=== PATIENT | male | born 1985 | race Caucasian/White ===

== ENCOUNTER 2020-02-05 13:46 | Emergency (ER) | payer OTHER, SELFPAY ==
[2020-02-05 13:56] VITALS: BP 145/96; PULSE 103; RESP 18; TEMP 36.8; O2SAT 96; BMI 28.7
[2020-02-05 14:00] VITALS: BP 143/107; PULSE 89; RESP 16; O2SAT 96
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
[2020-02-05] MEDS: HYDROcodone-acetaminophen 5-325 mg Tablet 1 TAB PO (14:23)
[2020-02-05 15:30] VITALS: BP 129/89; PULSE 87; RESP 16
[2020-02-05] MEDS: ondansetron 4 MG Tablet PO (15:37)
== END 2020-02-05 15:40 | disposition home or self-care (01) ==
PROVIDERS: Emergency Provider Emergency Medicine
DX: S13.4XXA Sprain of ligaments of cervical spine, initial encounter (principal); V89.2XXA Person injured in unspecified motor-vehicle accident, traffic, initial encounter
CPT/HCPCS: 12345; 70450; 71046; 72125; 99282; 99283; Q0162

== ENCOUNTER 2020-06-09 08:53 | Emergency (ER) | payer SELFPAY ==
[2020-06-09] VITALS (7 sets, daily range): BP systolic 122–165; BP diastolic 62–111; PULSE 79–105; RESP 16–18; TEMP 36.5; O2SAT 95–98; BMI 28.7
[2020-06-09] MEDS: ondansetron 2 mg/ML SDV 2 mL 4 MG IVP (09:34)
--- NOTE | 2020-06-09 09:35 | XRR_ITS ---
PROCEDURE INFORMATION: Exam: XR Abdomen, 1 View Exam date and time: 06/09/2020 9:53 AM Age: 34 years old Clinical indication: Abdominal pain; Localized; Right; Prior surgery; Surgery type: Kidney stone; Additional info: Nephrolithiasis, RT sided pain TECHNIQUE: Imaging protocol: XR of the abdomen. Views: Frontal supine view of the abdomen. 1 View. COMPARISON: No relevant prior studies available. FINDINGS: Gastrointestinal tract: No dilated gas-filled loops of bowel. Large amount of stool in the proximal colon, partially obscuring the right kidney. Organs: No radiopaque renal or ureteral calculi evident. Bones/joints: No acute osseous abnormality. XR/XR KUB 70017 IMPRESSION: No radiopaque calculus identified. Consider noncontrast helical CT ABDOMEN/PELVIS.
[2020-06-09] MEDS: morphine 4 mg/mL SDV 1 mL IVP ×2 (09:38→12:47)
[2020-06-09 09:43] LABS: Basophils % 0.5 %; Eosinophils # 0.4 10^3/uL (0.0-0.8); Eosinophils % 4.4 %; Hematocrit 46.7 % (42.0-52.0); Hemoglobin 15.7 g/dL (11.7-16.6); Lymphocytes # 3.5 10^3/uL (0.8-4.8); Lymphocytes % 40.4 %; Mean Corpuscular HGB Conc 33.6 g/dL (30.0-36.0); Mean Corpuscular Hemoglobin 28.5 pg (28.0-34.0); Mean Corpuscular Volume 84.9 fL (80-94); Mean Platelet Volume 10.4 fL (7.4-10.4); Monocytes # 0.7 10^3/uL (0.2-0.9); Monocytes % 8.1 %; Neutrophils # 4.03 10^3/uL (1.8-7.7); Neutrophils % 46.4 %; Nucleated Red Blood Cells % 0 %; Platelet Count 254 10^3/cmm (130-400); Red Cell Distribution Width 12.5 % (12.1-15.1); White Blood Count 8.7 10^3/uL (4.0-10.0)
--- NOTE | 2020-06-09 09:50 | ED_ITS ---
HPI - Male Genitourinary General: Chief complaint: Urogenital-Male Stated complaint: r sided pain Time Seen by Provider: 06/09/20 09:09 History of Present Illness: HPI Narrative: 34-year-old male presents to the emergency room with complaint of right flank pain. He has a history of nephrolithiasis and previously had a lithotripsy for it he states is been over 5 years since he had a problem he is previously seen Dr. Valentino. This morning began having significant right-sided flank pain he has not noticed any hematuria states it is very similar to what he had before with nephrolithiasis. He denies any dysuria urgency or frequency. MD Complaint: other Onset (ago): hour(s) Duration: constant Location: right flank Radiation: right inguinal region Severity: severe Quality: sharp and stabbing Relieving factors: none Exacerbating factors: none Associated symptoms: Reports nausea; Deny discharge, dysuria, fevers/chills, hematuria, swelling, urinary incontinence, urinary retention, mass or vomiting Review of Systems Const: Denies: fever(s), chills, body aches, change in appetite, fatigue or malaise ENMT: Denies: throat pain, ear or mastoid pain, nasal discharge or nasal congestion Card: Denies: chest pain, edema, dyspnea on exertion or orthopnea Resp: Denies: dyspnea, productive cough or non-productive cough GI: Reports: nausea; Denies: vomiting : Denies: dysuria, urinary incontinence or hematuria Skin/Breast: Denies: rash or pruritus PFS ED PFSH: Medical History (Updated 06/09/20 @ 12:32 by Rodrigo Moya DO) History of kidney stones Surgical History (Updated 06/09/20 @ 09:58 by Rodrigo Moya DO) H/O lithotripsy Social History Smoking and tobacco status: never smoked Alcohol intake: never Physical Exam Const: COMMON NORMALS: average body habitus, patient oriented x3 and alert GENERAL APPEARANCE: cooperative, comfortable, well kempt and well developed NUTRITIONAL APPEARANCE: obese ORIENTATION/CONSCIOUSNESS: Yes awake, Yes oriented to person and Yes oriented to place HENMT: COMMON NORMALS: normocephalic, atraumatic and EAC's normal HEAD & SCALP: normocephalic and atraumatic EXTERNAL AUDITORY CANAL: EAC's normal Eye: COMMON NORMALS: Equal, round and reactive pupils present, EOMs intact bilaterally, conjunctivae normal and no scleral icterus CONJUNCTIVA: Yes conjunctivae normal PUPIL: Yes Equal, round and reactive pupils present Resp: COMMON NORMALS: normal respiratory effort, No retractions, No use of accessory muscles and clear to auscultation bilaterally AUSCULTATION: clear to auscultation bilaterally Cardio: COMMON NORMALS: regular rate and regular rhythm RATE: regular rate RHYTHM: regular rhythm HEART SOUNDS: no murmurs GI: COMMON NORMALS: Normal to inspection, nondistended, normoactive bowel sounds present, Soft to palpation and No hepatosplenomegaly present PALPATION: Yes Soft to palpation and Yes No hepatosplenomegaly present : BLADDER/KIDNEY EXAM: Yes CVA tenderness Back/Pelvis: GENERAL BACK: Yes CVA tenderness CVA tenderness: right LUMBAR SPINE/LOWER BACK: Yes normal to inspection Neuro: COMMON NORMALS: patient oriented x3 SENSORIUM/ORIENTATION: Yes alert, Yes oriented to person and Yes oriented to place Psych: APPEARANCE: Yes well kempt Skin: COMMON NORMALS: no rashes or lesions noted and turgor normal GENERAL SKIN EXAM: no rashes or lesions noted and turgor normal Course Vital Signs: Vital signs: Vital Signs Temperature 97.7 F 06/09/20 09:09 Pulse Rate 80 06/09/20 13:03 Respiratory Rate 18 06/09/20 13:03 Blood Pressure 132/78 06/09/20 13:03 Pulse Oximetry 97 06/09/20 13:03 MDM - Male MDM Narrative: Medical decision making narrative: reviewed findings with pt. Will treat as an outpt. refer to urology. REturn if pain is uncontrolled Lab Data: Labs: Lab Results 06/09/20 06/09/20 06/09/20 Range/Units 09:20 09:20 09:22 WBC 8.7 (4.0-10.0) 10^3/ uL RBC 5.50 H (4.1-5.3) 10^6/u L Hgb 15.7 (11.7-16.6) g/dL Hct 46.7 (42.0-52.0) % MCV 84.9 (80-94) fL MCH 28.5 (28.0-34.0) pg MCHC 33.6 (30.0-36.0) g/dL RDW 12.5 (12.1-15.1) % Plt Count 254 (130-400) 10^3/c mm MPV 10.4 (7.4-10.4) fL Neut % (Auto) 46.4 % Lymph % (Auto) 40.4 % [place] % (Auto) 8.1 % Eos % (Auto) 4.4 % Baso % (Auto) 0.5 % Neut # (Auto) 4.03 (1.8-7.7) 10^3/u L Lymph # (Auto) 3.5 (0.8-4.8) 10^3/u L [place] # (Auto) 0.7 (0.2-0.9) 10^3/u L Eos # (Auto) 0.4 (0.0-0.8) 10^3/u L Baso # (Auto) 0.0 (0.0-0.1) 10^3/u L Nucleated RBC % (a uto) 0 % Nucleated RBCs # 0.0 /100WBC Sodium 138 (136-145) mmol/L Potassium 3.8 (3.5-5.1) mmol/L Chloride 102 (98-107) mmol/L Carbon Dioxide 26 (22-29) mmol/L Anion Gap 13.8 (5-19) BUN 10 (6-20) mg/dL Creatinine 1.1 (0.7-1.2) mg/dL GFR Calculation 77.6 L (90-130) mL/min Glucose 126 H (65-115) mg/dL Calculated Osmolal ity 284 L (285-295) mOsm/k g Calcium 8.6 (8.5-10.5) mg/dL Urine Color Yellow (Yellow) Urine Appearance Clear (CLEAR) Urine pH 5.0 (5-7) Ur Specific Gravit y 1.030 (1.005-1.030) Urine Protein Neg (Negative) Urine Glucose (UA) Norm (Normal) Urine Ketones Negative (Negative) Urine Blood 3+ H (Negative) Urine Nitrate Negative (Negative) Urine Bilirubin Neg (NEGATIVE) Urine Urobilinogen Norm (Negative) mg/dL Ur Leukocyte [place] ase Negative (Negative) Urine RBC 80-100 H (0-2) /hpf Urine WBC None (0-5) /hpf Ur Squamous Epith Cells 5-10 H (0-5) Amorphous Sediment Not Reportable Urine Bacteria Trace (NONE) Discharge Plan Discharge Patient Disposition: Home Clinical Impression: Right nephrolithiasis, Urinary tract infection Condition: Stable Prescriptions: New hydrocodone-acetaminophen 5-325 mg tablet 1 tab PO Q6H PRN (Reason: pain) Qty: 20 RF: 0 Zofran 4 mg tablet 4 mg PO Q6H PRN (Reason: nausea and vomiting) Qty: 15 RF: 0 Cipro 500 mg tablet 500 mg PO BID 7 Days Qty: 14 RF: 0 tamsulosin 0.4 mg capsule 0.4 mg PO DAILY Qty: 14 RF: 0 No Action ibuprofen 200 mg Tablet 800 mg PO PRN RF: 0 Discharge Orders: Discharge Order (Routine); Ordered 06/09/20 Ordered By: Rodrigo Moya Discharge Date/Time: 06/09/20 13:02 Coding Level of Care Code ED Admissions Rn for Chg Fwd Exam Comprehensive
[2020-06-09 09:58] LABS: Anion Gap 13.8 (5-19); Blood Urea Nitrogen 10 mg/dL (6-20); Calcium 8.6 mg/dL (8.5-10.5); Carbon Dioxide 26 mmol/L (22-29); Chloride 102 mmol/L (98-107); Glomerular Filtration Rate 77.6 mL/min (90-130); Glucose 126 mg/dL (65-115); Osmolality Calculated 284 mOsm/kg (285-295); Potassium 3.8 mmol/L (3.5-5.1); Sodium 138 mmol/L (136-145)
[2020-06-09 10:00] LABS: Add Urine Microscopic? YES; Bilirubin Urine Neg (NEGATIVE); Blood Urine 3+ (Negative); Glucose Urine UA Norm (Normal); Ketones Urine Negative (Negative); Leukocyte Esterase Urine Negative (Negative); Nitrate Urine Negative (Negative); Protein Urine Neg (Negative); Urine Appearance Clear (CLEAR); Urine Color Yellow (Yellow); Urobilinogen Urine Norm (Negative)
[2020-06-09 10:03] LABS: Add Urine Culture? No; Bacteria Urine TRACE; RBC Urine 80-100 /hpf (0-2)
--- NOTE | 2020-06-09 10:23 | CT_ITS ---
WS: [id number] CT ABDOMEN PELVIS TECHNIQUE: Noncontrast CT of the abdomen and pelvis with coronal and sagittal reformatted images. CLINICAL INFORMATION: Right flank pain, hematuria COMPARISON: None. DLP: 1314.[address] scans at [facility] use at least one of these dose optimization techniques: automat ed exposure control; mA and/or kV adjustment per patient size (includes targeted exams where dose is matched to clinical indication); or iterative reconstruction. FINDINGS: Noncontrast liver is normal. Small right hepatic cyst. Normal gallbladder. Small esophageal hiatal he rnia. Small splenule. Noncontrast pancreas is unremarkable. Lung bases are well aerated. Mild to moderate right hydronephrosis with inflammatory stranding about the right kidney. Mild right hydroureter. Suggestion of a tiny 1 mm calculus near the right UVJ. Tiny calculus in the left dorsal bladder may be due to recently passed calculus. Left kidney is normal. Both adrenal glands are normal. No obstructing left renal or ureteral calculi. Normal caliber abdominal aorta. Fat-containing umbilical hernia. Mild disc bulging L1-2. CT/CT kidney stone [id number] IMPRESSION: 1. Mild right hydronephrosis with inflammatory stranding about the right kidne y. Moderate hydroureter. Equivocal tiny 1 mm calculus distal right ureter. Abdiel tional tiny calculus in the dorsal aspect of the bladder may be due to recently passed calculus although eccentric to the left. 2. No hydronephrosis in the left kidney. 3. Small esophageal hiatal hernia. 4. No other acute findings. Notified Rodrigo Moya DO at 06/09/2020 12:42 PM.
[2020-06-09] MEDS: morphine 4 mg/mL SDV 1 mL 6 MG IVP (10:26)
--- NOTE | 2020-06-09 12:37 | DCPLANNER ---
manager architecture was asked to schedule a follow up appointment for patient with Dr. Valentino. manager architecture called the office of Dr. Valentino, spoke with Rosario, gave clinic patients information. manager architecture was told that patients information would be printed and given to Billie for review. Clinic will call patient with appointment information.
--- NOTE | 2020-06-11 07:43 | DCPLANNER ---
Patient has a follow up appointment scheduled for Sunday, June 11, 2020 at 8:[address] Valentino. Clinic will call patient with appointment information.
--- NOTE | 2020-06-17 07:50 | DCPLANNER ---
Patient did not attend appointment scheduled for 06.11.[address] Valentino.
== END 2020-06-09 13:02 | disposition home or self-care (01) ==
PROVIDERS: Emergency Provider Family Medicine
DX: N20.0 Calculus of kidney (principal); N39.0 Urinary tract infection, site not specified; Z87.442 Personal history of urinary calculi
CPT/HCPCS: 12345; 74018; 74176; 80048; 81001; 85025; 96374; 96375; 96376; 99283; J2270; J2405

== ENCOUNTER 2021-11-07 20:15 | Emergency (ER) | payer OTHER, SELFPAY ==
[2021-11-07 21:57] VITALS: BP 142/79; PULSE 118; RESP 20; TEMP 37.9; O2SAT 96; BMI 29.4
[2021-11-07] MEDS: acetaminophen 500 mg Tablet 1000 MG PO (23:03)
[2021-11-07 23:27] LABS: Basophils % 0.2 %; Hematocrit 43.3 % (42.0-52.0); Hemoglobin 14.5 g/dL (11.7-16.6); Lymphocytes # 0.8 10^3/uL (0.8-4.8); Lymphocytes % 6.1 %; Mean Corpuscular HGB Conc 33.5 g/dL (30.0-36.0); Mean Corpuscular Hemoglobin 28.4 pg (28.0-34.0); Mean Corpuscular Volume 84.9 fl (80-94); Mean Platelet Volume 10.7 fL (7.4-10.4); Monocytes # 0.9 10^3/uL (0.2-0.9); Neutrophils # 11.51 10^3/uL (1.8-7.7); Neutrophils % 86.3 %; Nucleated Red Blood Cells % 0 %; Platelet Count 212 10^3/cmm (130-400); White Blood Count 13.4 10^3/uL (4.0-10.0)
--- NOTE | 2021-11-07 23:29 | ED_ITS ---
HPI - Nausea/Vomiting/Diarrhea General: Chief complaint: Nausea/Vomiting/Diarrhea Stated complaint: STATES POSS FOOD POISONING: N/V/D, TEMP 100.00 Time Seen by Provider: 11/07/21 23:19 Source: patient Mode of arrival: ambulatory Limitations: no limitations History of Present Illness: Patient is a 36-year-old male who presents to ED today with a complaint of nausea, vomiting, diarrhea and concerns for possible food poisoning. Patient states he ate [employer] yesterday evening around 8 PM and states around midmorning this morning began feeling unwell. He states he felt nauseous and dizzy. states he ate [employer] again for lunch today. States he was sent home from work and later this afternoon began vomiting. He states he has vomited a total of 30 times-nonbloody and nonbilious. He states he has had about 6 episodes of nonbloody diarrhea. Reports some stomach cramping. He states he had a friend also ate [employer] and he is ill with similar symptoms. Reports low-grade fevers. Patient reports he is not having much abdominal pain currently. MD elicited complaint: nausea, vomiting, diarrhea and abdominal pain Onset (ago): hour(s) Description of diarrhea: watery Associated nausea: Yes Associated abdominal pain: Yes Location of pain: Diffuse Severity: mild Quality: cramping Associated symtoms: Reports dizziness and nausea; Denies chest pain, dysuria or headache(s) Review of Systems Const: Reports: fever(s); Denies: body aches Card: Denies: chest pain Resp: Denies: dyspnea GI: Reports: abdominal pain, nausea, vomiting and diarrhea : Denies: flank pain, dysuria or hematuria Musc: Denies: neck pain, back pain, extremity pain or joint pain Skin/Breast: Denies: rash Neuro: Reports: dizziness; Denies: headache(s), numbness in extremities, weakness in extremities, sensory changes or confusion PFS ED PFSH: Medical History History of kidney stones Surgical History H/O lithotripsy Social History Smoking and tobacco status: never smoked Alcohol intake: never Physical Exam Const: COMMON NORMALS: no acute distress, average body habitus, patient oriented x3, no limitations, alert and well nourished GENERAL APPEARANCE: cooperative HENMT: COMMON NORMALS: normocephalic and atraumatic HEAD & SCALP: normocephalic and atraumatic Resp: COMMON NORMALS: normal respiratory effort and clear to auscultation bilaterally AUSCULTATION: clear to auscultation bilaterally Cardio: COMMON NORMALS: regular rhythm RATE: tachycardic RHYTHM: regular rhythm GI: COMMON NORMALS: Normal to inspection, nondistended, normoactive bowel sounds present, Soft to palpation, No hepatosplenomegaly present and no masses INSPECTION: Yes normal to inspection PALPATION: Yes Soft to palpation, Yes Tenderness to palpation present (GI) (mild diffusely-non surgical exam) and Yes No hepatosplenomegaly present Extremity: COMMON NORMALS: normal to inspection Neuro: JOHN COMA SCALE: document GCS findings John coma scale eye opening: Spontaneous Lindsay coma scale verbal response: Orientated John coma scale motor response: Obey commands Lindsay coma scale total score: 15 COMMON NORMALS: patient oriented x3, moves all extremities, no focal motor deficits and no sensory deficits noted SENSORIUM/ORIENTATION: Yes alert Skin: COMMON NORMALS: no rashes or lesions noted GENERAL SKIN EXAM: no rashes or lesions noted Course Vital Signs: Vital signs: Vital Signs Temperature 100.6 F H 11/08/21 00:36 Pulse Rate 108 H 11/08/21 00:36 Respiratory Rate 17 11/08/21 00:36 Blood Pressure 119/51 11/08/21 00:36 Pulse Oximetry 95 11/08/21 00:36 MDM - Nausea/Vomiting/Diarrhea Medical Decision Making Patient clinically appears well. Abdomen is nonsurgical. Patient is mildly tachycardic with a low-grade fevers. Labs overall are unremarkable. Based on his food exposure of [employer] and symptoms starting several hours following this in addition to his friend also eating [employer] and is now ill with similar symptoms I highly suspect a gastroenteritis. He was given IV fluids and Zofran here and states he feels better. Recommend conservative treatment at home with continuing to push fluids. Return to ED precautions verbally given to patient. Differential Diagnosis Likely food poisoning and gastroenteritis Medical Records I reviewed the patient's medical records. Lab Data : 11/07/21 23:15 11/07/21 23:50 Laboratory Results WBC 13.4 10^3/uL (4.0-10.0) H 11/07/21 23:15 RBC 5.10 10^6/uL (4.1-5.3) 11/07/21 23:15 Hgb 14.5 g/dL (11.7-16.6) 11/07/21 23:15 Hct 43.3 % (42.0-52.0) 11/07/21 23:15 MCV 84.9 fl (80-94) 11/07/21 23:15 MCH 28.4 pg (28.0-34.0) 11/07/21 23:15 MCHC 33.5 g/dL (30.0-36.0) 11/07/21 23:15 RDW 13.0 % (12.1-15.1) 11/07/21 23:15 Plt Count 212 10^3/cmm (130-400) 11/07/21 23:15 MPV 10.7 fL (7.4-10.4) H 11/07/21 23:15 Neut % (Auto) 86.3 % 11/07/21 23:15 Lymph % (Auto) 6.1 % 11/07/21 23:15 [place] % (Auto) 7.0 % 11/07/21 23:15 Eos % (Auto) 0.0 % 11/07/21 23:15 Baso % (Auto) 0.2 % 11/07/21 23:15 Neut # (Auto) 11.51 10^3/uL (1.8-7.7) H 11/07/21 23:15 Lymph # (Auto) 0.8 10^3/uL (0.8-4.8) 11/07/21 23:15 [place] # (Auto) 0.9 10^3/uL (0.2-0.9) 11/07/21 23:15 Eos # (Auto) 0.0 10^3/uL (0.0-0.8) 11/07/21 23:15 Baso # (Auto) 0.0 10^3/uL (0.0-0.1) 11/07/21 23:15 Nucleated RBC % (auto) 0 % 11/07/21 23:15 Nucleated RBCs # 0.0 /100WBC 11/07/21 23:15 Sodium 136 mmol/L (136-145) 11/07/21 23:50 Potassium 3.5 mmol/L (3.5-5.1) 11/07/21 23:50 Chloride 101 mmol/L (98-107) 11/07/21 23:50 Carbon Dioxide 23 mmol/L (22-29) 11/07/21 23:50 Anion Gap 15.5 (5-19) 11/07/21 23:50 BUN 13 mg/dL (6-20) 11/07/21 23:50 Creatinine 0.9 mg/dL (0.7-1.2) 11/07/21 23:50 GFR Calculation 96.6 mL/min (90-130) 11/07/21 23:50 Glucose 118 mg/dL (65-115) H 11/07/21 23:50 Calculated Osmolality 283 mOsm/kg (285-295) L 11/07/21 23:50 Calcium 8.2 mg/dL (8.5-10.5) L 11/07/21 23:50 Total Bilirubin 1.2 mg/dL (0.15-1.2) 11/07/21 23:50 AST 25 U/L (0-40) 11/07/21 23:50 ALT 41 U/L (0-41) 11/07/21 23:50 Alkaline Phosphatase 87 IU/L (40-130) 11/07/21 23:50 Total Protein 6.7 g/dL (6.6-8.7) 11/07/21 23:50 Albumin 4.1 g/dL (3.5-5.2) 11/07/21 23:50 Globulin 2.6 g/dL (1.3-4.6) 11/07/21 23:50 Lipase 21 U/L (13-60) 11/07/21 23:50 Urine Color Yellow (Yellow) 11/07/21 23:45 Urine Appearance Clear (CLEAR) 11/07/21 23:45 Urine pH 5 (5-7) 11/07/21 23:45 Ur Specific [place] 1.020 (1.005-1.030) 11/07/21 23:45 Urine Protein Neg (Negative) 11/07/21 23:45 Urine Glucose (UA) Norm (Normal) 11/07/21 23:45 Urine Ketones Negative (Negative) 11/07/21 23:45 Urine Blood Neg (Negative) 11/07/21 23:45 Urine Nitrate Negative (Negative) 11/07/21 23:45 Urine Bilirubin Neg (Negative) 11/07/21 23:45 Urine Urobilinogen Norm mg/dL (Negative) 11/07/21 23:45 Ur Leukocyte Esterase Negative (Negative) 11/07/21 23:45 Discharge Plan Discharge Patient Disposition: Home Clinical Impression: Gastroenteritis Condition: Stable Prescriptions: Continued Zofran 4 mg tablet 4 mg PO Q6H PRN (Reason: nausea and vomiting) Qty: 15 0RF Discontinued hydrocodone-acetaminophen 5-325 mg tablet 1 tab PO Q6H PRN (Reason: pain) Qty: 20 0RF No Action ibuprofen 200 mg Tablet 800 mg PO PRN 0RF tamsulosin 0.4 mg capsule 0.4 mg PO DAILY Qty: 14 0RF Discharge Orders: Discharge ED (Routine); Ordered 11/08/21 Ordered By: Anabelle Koroma Patient Instructions: Gastroenteritis (ED), Food Poisoning - Adult Coding Level of Care Code ED Tapping Machine Operator Automatic for Chg Fwd Exam Comprehensive
[2021-11-07] MEDS: sodium chloride 0.9% 1,000 ML 999 ML IV (23:33)
[2021-11-07] MEDS: ondansetron 2 mg/ML SDV 2 mL 4 MG IVP (23:45)
[2021-11-07 23:55] LABS: Add Urine Microscopic? NO; Charge for UA Resulting for Rev
[2021-11-07 23:58] LABS: Bilirubin Urine Neg (Negative); Blood Urine Neg (Negative); Glucose Urine UA Norm (Normal); Ketones Urine Negative (Negative); Leukocyte Esterase Urine Negative (Negative); Nitrate Urine Negative (Negative); Protein Urine Neg (Negative); Urine Appearance Clear (CLEAR); Urine Color Yellow (Yellow); Urobilinogen Urine Norm (Negative); pH Urine 5 (5-7)
[2021-11-08 00:20] LABS: Alanine Aminotransferase 41 U/L (0-41); Albumin Level 4.1 g/dL (3.5-5.2); Alkaline Phosphatase 87 IU/L (40-130); Anion Gap 15.5 (5-19); Aspartate Amino Transferase 25 U/L (0-40); Blood Urea Nitrogen 13 mg/dL (6-20); Calcium 8.2 mg/dL (8.5-10.5); Carbon Dioxide 23 mmol/L (22-29); Chloride 101 mmol/L (98-107); Creatinine Clr Calc Pharmacy 132.4908; Globulin 2.6 g/dL (1.3-4.6); Glomerular Filtration Rate 96.6 mL/min (90-130); Glucose 118 mg/dL (65-115); Lipase 21 U/L (13-60); Osmolality Calculated 283 mOsm/kg (285-295); Potassium 3.5 mmol/L (3.5-5.1); Sodium 136 mmol/L (136-145); Total Bilirubin 1.2 mg/dL (0.15-1.2); Total Protein 6.7 g/dL (6.6-8.7)
[2021-11-08 00:36] VITALS: BP 119/51; PULSE 108; RESP 17; TEMP 38.1; O2SAT 95
[2021-11-08 00:55] VITALS: TEMP 38.1
== END 2021-11-08 00:58 | disposition home or self-care (01) ==
PROVIDERS: Emergency Provider Physician Assistant
DX: K52.9 Noninfective gastroenteritis and colitis, unspecified (principal)
CPT/HCPCS: 80053; 81003; 83690; 85025; 96361; 96374; 99283; J2405; J7030

== ENCOUNTER 2022-02-18 16:15 | Emergency (ER) | payer OTHER, SELFPAY ==
[2022-02-18 16:24] VITALS: BP 160/96; PULSE 95; RESP 14; TEMP 36.2; O2SAT 97
--- NOTE | 2022-02-18 16:34 | CTR_ITS ---
PROCEDURE INFORMATION: Exam: CT Abdomen And Pelvis Without Contrast Exam date and time: 02/18/2022 5:12 PM Age: 36 years old Clinical indication: Abdominal pain; Flank; Left; Additional info: Flank pain TECHNIQUE: Imaging protocol: Computed tomography of the abdomen and pelvis without contrast. Radiation optimization: All CT scans at this facility use at least one of these dose optimization techniques: automated exposure control; mA and/or kV adjustment per patient size (includes targeted exams where dose is matched to clinical indication); or iterative reconstruction. COMPARISON: CR XR KUB [id number] 06/09/2020 9:55 AM RADIATION DOSE METRICS: Total DLP (mGy-cm): 1116.34 FINDINGS: Liver: Right hepatic lobe cyst. Gallbladder and bile ducts: Normal. No calcified stones. No ductal dilation. Pancreas: Normal. No ductal dilation. Spleen: Normal. No splenomegaly. Adrenal glands: Normal. No mass. Kidneys and ureters: Left ureterovesical junction 2.1 mm calculus with mild hydronephrosis and hydroureter. Stomach and bowel: Unremarkable. No obstruction. No mucosal thickening. Appendix: No evidence of appendicitis. Intraperitoneal space: Unremarkable. No free air. No significant fluid collection. Vasculature: Unremarkable. No abdominal aortic aneurysm. Lymph nodes: Unremarkable. No enlarged lymph nodes. Urinary bladder: Unremarkable as visualized. Reproductive: Unremarkable as visualized. Bones/joints: Unremarkable. No acute fracture. Soft tissues: Unremarkable. CT/CT kidney stone [id number] IMPRESSION: 1. Left ureterovesical junction 2.1 mm calculus with mild hydronephrosis and hydroureter. 2. Right hepatic lobe cyst.
--- NOTE | 2022-02-18 16:41 | ED_ITS ---
HPI - Abdominal Pain General: Chief Complaint: Abdominal Pain Stated Complaint: Abd Pain history of kidney stones Time Seen by Provider: 02/18/22 16:30 Source: patient Mode of arrival: ambulatory Limitations: no limitations History of Present Illness: 36-year-old male comes in complaining left-sided flank pain that began earlier this morning. He is a history of kidney stones states it feels similar to what he had in the past. Previously he has had to have a lithotripsy done to remove the stone. He denies any dysuria urgency or frequency or any hematuria. His pain is improved and now he took some ibuprofen earlier and that seemed to help quite a bit. He has not had any vomiting or diarrhea no fever sweats or chills MD elicited complaint: flank pain (Left) Pertinent past history: kidney stones Onset (ago): hour(s) Pain Consistency: intermittent Location: L flank Severity: moderate Quality: sharp Radiation: other (L groin) Exacerbating factors: nothing Relieving factors: nothing Associated Symptoms: Denies anorexia, belching, bloating, change in bowel habits, change in stool character, chills, coffee ground emesis, constipation, GI cramping, diarrhea, dyspepsia, dysuria, excessive flatus, fever(s), heartburn, hematochezia, hematuria, hematemesis, fecal incontinence, loose sto ols, melena, nausea, poor appetite and vomiting Review of Systems Const: Denies: fever(s) or chills ENMT: Denies: throat pain, ear or mastoid pain, nasal discharge or nasal congestion Card: Denies: chest pain, edema, dyspnea on exertion or orthopnea Resp: Denies: dyspnea, productive cough or non-productive cough GI: Denies: nausea, vomiting, hematemesis, coffee ground emesis, heartburn, diarrhea, constipation, bloating, GI cramping, belching, excessive flatus, fecal incontinence, change in bowel habits, change in stool character, hematochezia or melena : Reports: flank pain and difficulty urinating; Denies: dysuria, urinary frequency, urinary urgency or hematuria Skin/Breast: Denies: rash or pruritus PFSH ED PFSH: Medical History History of kidney stones Surgical History H/O lithotripsy Social History Smoking and tobacco status: never smoked Alcohol intake: never Physical Exam Const: GENERAL APPEARANCE: cooperative and comfortable ORIENTATION/CONSCIOUSNESS: Yes awake, Yes oriented to person, Yes oriented to place and Yes oriented to time HENMT: COMMON NORMALS: normocephalic, atraumatic and hearing grossly normal bilaterally HEAD & SCALP: normocephalic and atraumatic Neck/C-Spine: COMMON NORMALS: no JVD Resp: COMMON NORMALS: normal respiratory effort, No retractions, No use of accessory muscles and clear to auscultation bilaterally AUSCULTATION: clear to auscultation bilaterally Cardio: COMMON NORMALS: no JVD, regular rate, regular rhythm and No murmurs present (Cardio) RATE: regular rate RHYTHM: regular rhythm GI: COMMON NORMALS: Soft to palpation and No hepatosplenomegaly present AUSCULTATION: Yes normoactive bowel sounds PALPATION: Yes Soft to palpation, No Tenderness to palpation present (GI), No Guarding due to palpation present (GI) and Yes No hepatosplenomegaly present Extremity: COMMON NORMALS: normal to inspection, capillary refill normal, no clubbing, cyanosis or edema, no calf tenderness and no pedal edema Neuro: SENSORIUM/ORIENTATION: Yes oriented to person, Yes oriented to place and Yes oriented to time Skin: COMMON NORMALS: no rashes or lesions noted GENERAL SKIN EXAM: no rashes or lesions noted Course Vital Signs: Vital signs: Vital Signs Temperature 98.1 F 02/18/22 17:01 Pulse Rate 87 02/18/22 17:01 Respiratory Rate 16 02/18/22 17:01 Blood Pressure 158/99 02/18/22 17:01 Pulse Oximetry 97 02/18/22 17:01 MDM - Abdominal Pain Medical Decision Making [address] is read as a left UVJ stone however when the patient returned from CT he was pretty much pain-free I suspect he has already passed the stone. We did give him some hydrocodone Zofran and tamsulosin to use as needed if he has more pain or he can save to use in the future if he has another stone passes. Asked him to strain his urine we will have him follow-up with Dr. Valentino Medical Records I reviewed the patient's medical records. Lab Data I reviewed the patient's lab results. : 02/18/22 16:36 02/18/22 16:36 Labs/Radiology: Radiology Impressions Abdomen/Pelvis CT 02/18/22 16:34 IMPRESSION: 1. Left ureterovesical junction 2.1 mm calculus with mild hydronephrosis and hydroureter. 2. Right hepatic lobe cyst. Laboratory Results WBC 9.0 10^3/uL (4.0-10.0) 02/18/22 16:36 RBC 5.51 10^6/uL (4.1-5.3) H 02/18/22 16:36 Hgb 15.7 g/dL (11.7-16.6) 02/18/22 16:36 Hct 46.2 % (42.0-52.0) 02/18/22 16:36 MCV 83.8 fl (80-94) 02/18/22 16:36 MCH 28.5 pg (28.0-34.0) 02/18/22 16:36 MCHC 34.0 g/dL (30.0-36.0) 02/18/22 16:36 RDW 13.1 % (12.1-15.1) 02/18/22 16:36 Plt Count 274 10^3/cmm (130-400) 02/18/22 16:36 MPV 10.1 fL (7.4-10.4) 02/18/22 16:36 Neut % (Auto) 52.8 % 02/18/22 16:36 Lymph % (Auto) 33.6 % 02/18/22 16:36 [place] % (Auto) 8.4 % 02/18/22 16:36 Eos % (Auto) 4.7 % 02/18/22 16:36 Baso % (Auto) 0.3 % 02/18/22 16:36 Neut # (Auto) 4.74 10^3/uL (1.8-7.7) 02/18/22 16:36 Lymph # (Auto) 3.0 10^3/uL (0.8-4.8) 02/18/22 16:36 [place] # (Auto) 0.8 10^3/uL (0.2-0.9) 02/18/22 16:36 Eos # (Auto) 0.4 10^3/uL (0.0-0.8) 02/18/22 16:36 Baso # (Auto) 0.0 10^3/uL (0.0-0.1) 02/18/22 16:36 Nucleated RBC % (auto) 0 % 02/18/22 16:36 Nucleated RBCs # 0.0 /100WBC 02/18/22 16:36 Sodium 140 mmol/L (136-145) 02/18/22 16:36 Potassium 4.0 mmol/L (3.5-5.1) 02/18/22 16:36 Chloride 103 mmol/L (98-107) 02/18/22 16:36 Carbon Dioxide 25 mmol/L (22-29) 02/18/22 16:36 Anion Gap 16.0 (5-19) 02/18/22 16:36 BUN 11 mg/dL (6-20) 02/18/22 16:36 Creatinine 0.9 mg/dL (0.7-1.2) 02/18/22 16:36 GFR Calculation 96.6 mL/min (90-130) 02/18/22 16:36 Glucose 110 mg/dL (65-115) 02/18/22 16:36 Calculated Osmolality 290 mOsm/kg (285-295) 02/18/22 16:36 Calcium 8.8 mg/dL (8.5-10.5) 02/18/22 16:36 Total Bilirubin 0.7 mg/dL (0.15-1.2) 02/18/22 16:36 AST 31 U/L (0-40) 02/18/22 16:36 ALT 53 U/L (0-41) H 02/18/22 16:36 Alkaline Phosphatase 89 IU/L (40-130) 02/18/22 16:36 Total Protein 7.7 g/dL (6.6-8.7) 02/18/22 16:36 Albumin 4.6 g/dL (3.5-5.2) 02/18/22 16:36 Globulin 3.1 g/dL (1.3-4.6) 02/18/22 16:36 Urine Color Yellow (Yellow) 02/18/22 16:36 Urine Appearance Clear (CLEAR) 02/18/22 16:36 Urine pH 5 (5-7) 02/18/22 16:36 Ur Specific [place] 1.025 (1.005-1.030) 02/18/22 16:36 Urine Protein Neg (Negative) 02/18/22 16:36 Urine Glucose (UA) Norm (Normal) 02/18/22 16:36 Urine Ketones Negative (Negative) 02/18/22 16:36 Urine Blood 3+ (Negative) H 02/18/22 16:36 Urine Nitrate Negative (Negative) 02/18/22 16:36 Urine Bilirubin Neg (Negative) 02/18/22 16:36 Urine Urobilinogen Norm mg/dL (Negative) 02/18/22 16:36 Ur Leukocyte Esterase Negative (Negative) 02/18/22 16:36 Urine RBC 5-10 /hpf (0-2) H 02/18/22 16:36 Urine WBC Rare /hpf (0-5) 02/18/22 16:36 Ur Squamous Epith Cells None /hpf (0-5) 02/18/22 16:36 Amorphous Sediment Not Reportable 02/18/22 16:36 Urine Bacteria Trace /hpf (NONE) 02/18/22 16:36 Urine Mucus 1+ /hpf 02/18/22 16:36 Discharge Plan Discharge Patient Disposition: Home Clinical Impression: Left nephrolithiasis Condition: Stable Prescriptions: New hydrocodone-acetaminophen 5-325 mg tablet 1 tab PO Q6H PRN (Reason: pain) Qty: 20 0RF ondansetron HCl 4 mg tablet 4 mg PO Q6H PRN (Reason: nausea and vomiting) Qty: 20 0RF tamsulosin 0.4 mg capsule 0.4 mg PO DAILY Qty: 20 0RF No Action Zofran 4 mg tablet 4 mg PO Q6H PRN (Reason: nausea and vomiting) Qty: 15 0RF ibuprofen 200 mg Tablet 800 mg PO PRN 0RF tamsulosin 0.4 mg capsule 0.4 mg PO DAILY Qty: 14 0RF Discharge Orders: Discharge ED (Routine); Ordered 02/18/22 Ordered By: Rodrigo Moya Discharge Diet: Usual diet Discharge Activity: Increase activity as tolerated Patient Instructions: Opioid Safety Activity Restrictions/Additional Instructions: Follow-up with Dr. Chicho fuentes urine to catch stone to submit for analysis. Coding Level of Care Code ED Drill Instructor for Chg Fwd Exam Comprehensive
[2022-02-18 16:45] LABS: Basophils % 0.3 %; Eosinophils # 0.4 10^3/uL (0.0-0.8); Eosinophils % 4.7 %; Hematocrit 46.2 % (42.0-52.0); Hemoglobin 15.7 g/dL (11.7-16.6); Lymphocytes % 33.6 %; Mean Corpuscular Hemoglobin 28.5 pg (28.0-34.0); Mean Corpuscular Volume 83.8 fl (80-94); Mean Platelet Volume 10.1 fL (7.4-10.4); Monocytes # 0.8 10^3/uL (0.2-0.9); Monocytes % 8.4 %; Neutrophils # 4.74 10^3/uL (1.8-7.7); Neutrophils % 52.8 %; Nucleated Red Blood Cells % 0 %; Platelet Count 274 10^3/cmm (130-400); Red Blood Count 5.51 10^6/uL (4.1-5.3); Red Cell Distribution Width 13.1 % (12.1-15.1)
[2022-02-18 17:00] VITALS: RESP 16
[2022-02-18 17:00] LABS: Alanine Aminotransferase 53 U/L (0-41); Albumin Level 4.6 g/dL (3.5-5.2); Alkaline Phosphatase 89 IU/L (40-130); Aspartate Amino Transferase 31 U/L (0-40); Blood Urea Nitrogen 11 mg/dL (6-20); Calcium 8.8 mg/dL (8.5-10.5); Carbon Dioxide 25 mmol/L (22-29); Chloride 103 mmol/L (98-107); Globulin 3.1 g/dL (1.3-4.6); Glomerular Filtration Rate 96.6 mL/min (90-130); Glucose 110 mg/dL (65-115); Osmolality Calculated 290 mOsm/kg (285-295); Sodium 140 mmol/L (136-145); Total Bilirubin 0.7 mg/dL (0.15-1.2); Total Protein 7.7 g/dL (6.6-8.7)
[2022-02-18] MEDS: morphine 4 mg/mL SDV 1 mL 6 MG IVP (17:00)
[2022-02-18] MEDS: ondansetron 2 mg/ML SDV 2 mL 4 MG IVP (17:00)
[2022-02-18 17:01] VITALS: BP 158/99; PULSE 87; RESP 16; TEMP 36.7; O2SAT 97
[2022-02-18] MEDS: sodium chloride 0.9% 1,000 ML 999 ML IV (17:01)
[2022-02-18 17:02] LABS: Add Urine Microscopic? YES; Bilirubin Urine Neg (Negative); Blood Urine 3+ (Negative); Glucose Urine UA Norm (Normal); Ketones Urine Negative (Negative); Leukocyte Esterase Urine Negative (Negative); Nitrate Urine Negative (Negative); Protein Urine Neg (Negative); Specific Gravity, Urine 1.025 (1.005-1.030); Urine Appearance Clear (CLEAR); Urine Color Yellow (Yellow); Urobilinogen Urine Norm (Negative); WBC Urine RARE /hpf (0-5); pH Urine 5 (5-7)
[2022-02-18 17:03] LABS: Add Urine Culture? No; Bacteria Urine TRACE /hpf; Mucus Urine 1+ /hpf
[2022-02-18 18:16] VITALS: BP 148/80; PULSE 81; RESP 16; TEMP 36.7; O2SAT 98
--- NOTE | 2022-02-20 15:27 | DCPLANNER ---
Addendum entered by Leana Menjivar 04/19/22 15:52: Patients appointment was cancelled. Original Note: chef manager had message to schedule a follow up appointment for patient with urology. chef manager sent patients information to the front staff at urology. Patients information will be printed and reviewed. Clinic will call patient with appointment information.
== END 2022-02-18 18:18 | disposition home or self-care (01) ==
PROVIDERS: Emergency Provider Family Medicine
DX: N20.0 Calculus of kidney (principal)
CPT/HCPCS: 74176; 80053; 81001; 85025; 96374; 96375; 99284; J2270; J2405; J7030